=== PATIENT | male | born 1930 | race Caucasian/White ===

== ENCOUNTER 2019-12-08 10:45 | Emergency (ER) | payer OTHER ==
--- OUTSIDE RECORDS SUMMARY | 2019-12-08 10:48 | XMS REPORT ---
:1930 [facility] [place] [address] Care Team Providers Name Role Phone SADIE ALLEN MI Unavailable Unavailable Problems This patient has no known problems. Allergies, Adverse Reactions, Alerts This patient has no known allergies or adverse reactions. Medications This patient has no known medications. Results Test Description Test Time Test Comments Text Results Atomic Results Result Comments CT, ABDOMEN 2019-11-14 FINAL REPORT PATIENT ID: 16:25:[id number] of the abdomen and pelvis, without contrast Clinical History: c67.8 Technique: CT of the abdomen and pelvis is performed without intravenous contrast administration. This exam was performed according to our departmental dose optimization program which includes automated exposure control, adjustment of the mA and/or kV according to patient's size and/or use of iterative reconstructive technique. Comparison Film: None Discussion: There is mild degree of peripheral reticular nodular opacities at the lung bases. No liver lesion is identified on this noncontrast exam. There is no biliary ductal dilatation, gallbladder is unremarkable. The spleen, pancreas, adrenal glands are unremarkable. There is mild right and moderate to severe left hydronephrosis and hydroureter. There is left renal cortical atrophy, and calyceal diverticuli are suspected. No radiopaque stone. Status post cystoprostatectomy, with Miguel Angel pouch. The neobladder is distended. No evidence of bowel obstruction, or abnormal bowel wall thickening, although evaluation is suboptimal in the absence of IV and oral contrast. There is extensive colonic diverticulosis. No pericecal inflammatory change. Mild fecal impaction is noted in the rectum. Surgical clips are noted along the pelvic sidewalls. There is no adenopathy or ascites. There is advanced vascular calcification, and the aorta is ectatic. Osseous structures demonstrate degenerative changes. No suspicious bony lesion is identified. 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 Impression: Status post cystoprostatectomy. The neobladder is distended, and there is moderate to severe left, mild right hydronephrosis and hydroureter. There is left renal cortical atrophy, and possible left-sided calyceal diverticuli. No recurrent mass, or metastatic disease is identified on this noncontrast exam. Extensive colonic diverticulosis. Mild fecal impaction in the rectum. Signed: Colt Sorianoort Verified Date/Time: 11/14/2019 16:25:08 Reading Location: [facility] C013 Ortho Consult Reading Room , CHEST, 2 2019-11-14 Reason for FINAL REPORT PATIENT ID: VIEWS 15:09:00 Exam:->malignant neoplasm [id number] EXAM: PA and of overlapping sites of lateral views of the bladder chest. 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 Lungs: The lungs are well inflated and clear. Pleura: There is no pleural effusion or pneumothorax. Heart and mediastinum: The cardiac silhouette is mildly prominent but decrease in size when compared to prior exam. Unchanged calcifications of the aortic arch. Bones and soft tissues: Multilevel degenerative changes of the thoracic spine. IMPRESSION: No acute cardiopulmonary abnormalities. Signed: Emma Montalvo Verified Date/Time: 11/14/2019 15:09:44 Reading Location: [facility] Reading Room [address] [place], [place] [id number] , ANGIOGRAM, 2019-03-28 Angiogram with possible FINAL REPORT PATIENT ID: CEREBRAL 13:03:00 thrombectomyReason for [id number] DATE: 03/21/2019 exam:->CEREBROVASCULAR 1:28 PM SURGEON: Jada Dozier M.D. FIRST ThrombectomyLSOnel last COMPLAINT EVALUATION SUPERVISOR: sonny Edwards M.D. PREOPERATIVE DIAGNOSIS: Left INSURANCE AGENCY OWNER (P1) occlusion POST OPERATIVE DIAGNOSIS: Left INSURANCE AGENCY OWNER occlusion s/p successful recanalization OPERATION: 1) CEREBRAL ANGIOGRAM2) Mechanical thrombectomy of the left posterior cerebral artery thrombus ANESTHESIA: GETA ESTIMATED BLOOD LOSS: 15cc COMPLICATIONS: None INDICATIONS: Patient is an 88-year-old right-handed male with no significant past medical history presenting with right-sided weakness, discoordination and slurred speech. He was last seen normal at 10:30 PM last night on 03/20/2019 when he went to sleep. His found him the following this morning at the edge of the bed with neurologic deficits. CTA of the brain showed large vessel occlusion of the left P1 segment of the INSURANCE AGENCY OWNER. Neurosurgery was consulted for endovascular treatment. PROCEDURE: The risks, including but not limited to stroke, intracranial hemorrhage, vascular injury to the cervical or femoral vessels and groin hematoma were discussed with the patient's family. Informed consent was obtained. The patient was taken back to the endovascular suit and was intubated under general anesthesia. A time-out was performed. Both groins were prepped in the usual sterile fashion using Chloroprep, and sterilely draped. A single wall puncture of the right femoral artery was performed and a 8 Fr short sheath was inserted into the right common femoral artery and maintained on heparinized flush. A 6 Fr long sheath was advanced over a guidewire into the descending aorta, back-bled, and flushed in the usual fashion. Using coaxial technique, the left vertebral artery, basilar artery, left posterior cerebral artery were catheterized. Endovascular treatment was then performed on the occluded left P1 segment of the posterior cerebral artery (see details below) FINDINGS PRE-TREATMENT: LEFT SUBCLAVIAN ARTERY (ROADMAP - PA - CERVICAL) The origin of the left vertebral artery is patent without significant stenosis. LEFT VERTEBRAL ARTERY (DSA - PA, LATERAL - HEAD) The left vertebral artery is patent without significant stenotic lesion. The basilar artery shows no significant abnormality. There is symmetric caudal regression of the basilar artery. There is contrast reflux into the right vertebral artery with opacification of the right posterior inferior cerebellar artery. There is significant tortuosity in bilateral vertebral arteries.There is complete occlusion of the distal P1 segment of the left posterior cerebral artery. There is no distal filling in the left INSURANCE AGENCY OWNER territory. There is physiologic filling in the right INSURANCE AGENCY OWNER territory with opacification of all distal branchesNo aneurysms or vascular malformations are noted in the vertebrobasilar system. The venous phase shows patent bilateral transverse and sigmoid sinuses. ENDOVASCULAR INTERVENTION: Using coaxial technique, a Travefy distal access catheter was advanced under roadmap guidance and careful manipulation into the left vertebral artery. The ralali microcatheter, over a Synchro wire, was used to catheterize the left posterior cerebral artery. The catheter was advanced beyond the area of occlusion. Digital subtraction angiography using the appropriate rate and volume of contrast showed filling beyond the occluded segment of the left posterior cerebral artery. A 5 x 33 mm Embotrap stent retriever was then advanced to the area of occlusion through the microcatheter and deployed. The stent retriever was pulled back together with manual suction. Diagnostic angiogram through the distal access catheter demonstrated patency of the occluded P1 segment of the left INSURANCE AGENCY OWNER. The P1 and P2 segments of the left INSURANCE AGENCY OWNER showed good filling. However, there was no distal filling of the INSURANCE AGENCY OWNER territories beyond the P2 segment. A repeat angiogram 5 minutes later demonstrated complete reocclusion of the P1 segment of the left INSURANCE AGENCY OWNER. The Trevo stent retriever was then advanced into the area of stenosis over a Synchro wire through the microcatheter and deployed. The stent retriever was pulled back together with gentle manual suction. Diagnostic angiogram through the distal access catheter demonstrated complete patency of the entire left posterior cerebral artery with adequate filling of all the distal branches, TICI 3. Angiography through the left subclavian artery showed patency of the origin of the left vertebral artery without any stenosis. The left vertebral artery continued to be patent with good flow and no stenotic lesions. The catheters were removed. The 8 Turkmen sheath was removed. Hemostasis was achieved with an Angio-Seal closure device. The patient tolerated the procedure well and was transported from the angiography suite to the neurointensive care unit. SUPERVISION AND INTERPRETATION: 1. Pre-intervention angiographic study demonstrated complete occlusion of the left P1 segment of the posterior cerebral artery. 2. Successful recanalization using stentriever deployment and aspiration. TICI 3 3. No immediate technical or clinical complications. Signed: Emiliano Olvera MDReport Verified Date/Time: 03/28/2019 13:03:35 Reading Location: [facility] Y026 Neuro Angio Reading Room C METABOLIC PANEL 2019-03-24 05:49:00 Test Item Value Reference Range Comments SODIUM (BEAKER) (test 142 meq/L 136-145 ylik=072) POTASSIUM (BEAKER) (test 4.2 meq/L 3.5-5.1 yxka=526) CHLORIDE (BEAKER) (test 112 meq/L 98-107 ouwr=496) CO2 (BEAKER) (test mlvf=209) 24 meq/L 22-29 BLOOD UREA NITROGEN (BEAKER) 23 mg/dL 7-21 (test ybrm=411) CREATININE (BEAKER) (test 1.13 mg/dL 0.57-1.25 gubj=584) GLUCOSE RANDOM (BEAKER) 94 mg/dL 70-105 (test tmei=230) CALCIUM (BEAKER) (test 9.0 mg/dL 8.4-10.2 tgxg=450) EGFR (BEAKER) (test 61 mL/min/1.73 sq m ESTIMATED GFR IS NOT tzvm=4099) ACCURATE CREATININE CLEARANCE IN PREDICTING GLOMERULAR FILTRATION RATE. ESTIMATED GFR IS NOT APPLICABLE FOR DIALYSIS PATIENTS. CBC W/PLT COUNT & AUTO [id number] 05:25:00 Test Item Value Reference Range Comments WHITE BLOOD CELL COUNT (BEAKER) (test ygmn=381) 10.9 K/ L 3.5-10.5 RED BLOOD CELL COUNT (BEAKER) (test cklf=496) 4.15 M/ L 4.63-6.08 HEMOGLOBIN (BEAKER) (test aoev=664) 12.6 GM/DL 13.7-17.5 HEMATOCRIT (BEAKER) (test wgnl=305) 39.9 % 40.1-51.0 MEAN CORPUSCULAR VOLUME (BEAKER) (test lhsi=354) 96.1 fL 79.0-92.2 MEAN CORPUSCULAR HEMOGLOBIN (BEAKER) (test 30.4 pg 25.7-32.2 excb=850) MEAN CORPUSCULAR HEMOGLOBIN CONC (BEAKER) (test 31.6 GM/DL 32.3-36.5 peab=145) RED CELL DISTRIBUTION WIDTH (BEAKER) (test 13.3 % 11.6-14.4 basl=320) PLATELET COUNT (BEAKER) (test ilwx=016) 161 K/CU MM 150-450 MEAN PLATELET VOLUME (BEAKER) (test vrzk=612) 9.1 fL 9.4-12.4 NUCLEATED RED BLOOD CELLS (BEAKER) (test 0 /100 WBC 0-0 tbwz=357) NEUTROPHILS RELATIVE PERCENT (BEAKER) (test 73 % epmq=456) LYMPHOCYTES RELATIVE PERCENT (BEAKER) (test 14 % ptsv=444) MONOCYTES RELATIVE PERCENT (BEAKER) (test 9 % hkgo=944) EOSINOPHILS RELATIVE PERCENT (BEAKER) (test 4 % qzvu=331) BASOPHILS RELATIVE PERCENT (BEAKER) (test 1 % qcev=475) NEUTROPHILS ABSOLUTE COUNT (BEAKER) (test 7.95 K/ L 1.78-5.38 wvei=922) LYMPHOCYTES ABSOLUTE COUNT (BEAKER) (test 1.46 K/ L 1.32-3.57 kqmf=664) MONOCYTES ABSOLUTE COUNT (BEAKER) (test 0.93 K/ L 0.30-0.82 mtfy=631) EOSINOPHILS ABSOLUTE COUNT (BEAKER) (test 0.41 K/ L 0.04-0.54 ycre=523) BASOPHILS ABSOLUTE COUNT (BEAKER) (test 0.05 K/ L 0.01-0.08 gjon=517) IMMATURE GRANULOCYTES-RELATIVE PERCENT (BEAKER) 1 % 0-1 (test dysy=6284) BASIC METABOLIC [id number] 05:45:00 Test Item Value Reference Range Comments SODIUM (BEAKER) (test 142 meq/L 136-145 lguq=146) POTASSIUM (BEAKER) (test 4.4 meq/L 3.5-5.1 chic=158) CHLORIDE (BEAKER) (test 114 meq/L 98-107 icxp=075) CO2 (BEAKER) (test 24 meq/L 22-29 vlhk=328) BLOOD UREA NITROGEN 21 mg/dL 7-21 (BEAKER) (test bvge=205) CREATININE (BEAKER) (test 1.11 mg/dL 0.57-1.25 krik=054) GLUCOSE RANDOM (BEAKER) 96 mg/dL 70-105 (test tpvn=346) CALCIUM (BEAKER) (test 8.8 mg/dL 8.4-10.2 ytsa=223) EGFR (BEAKER) (test 63 mL/min/1.73 sq m ESTIMATED GFR IS NOT fsxg=4842) ACCURATE CREATININE CLEARANCE IN PREDICTING GLOMERULAR FILTRATION RATE. ESTIMATED GFR IS NOT APPLICABLE FOR DIALYSIS PATIENTS. CBC W/PLT COUNT & AUTO [id number] 05:34:00 Test Item Value Reference Range Comments WHITE BLOOD CELL COUNT (BEAKER) (test kbwl=812) 9.8 K/ L 3.5-10.5 RED BLOOD CELL COUNT (BEAKER) (test btki=246) 4.03 M/ L 4.63-6.08 HEMOGLOBIN (BEAKER) (test byob=077) 12.3 GM/DL 13.7-17.5 HEMATOCRIT (BEAKER) (test hkhb=253) 39.1 % 40.1-51.0 MEAN CORPUSCULAR VOLUME (BEAKER) (test bbjp=659) 97.0 fL 79.0-92.2 MEAN CORPUSCULAR HEMOGLOBIN (BEAKER) (test 30.5 pg 25.7-32.2 mrtw=007) MEAN CORPUSCULAR HEMOGLOBIN CONC (BEAKER) (test 31.5 GM/DL 32.3-36.5 rasm=813) RED CELL DISTRIBUTION WIDTH (BEAKER) (test 13.2 % 11.6-14.4 zqcp=815) PLATELET COUNT (BEAKER) (test ftxa=391) 160 K/CU MM 150-450 MEAN PLATELET VOLUME (BEAKER) (test hygj=287) 8.8 fL 9.4-12.4 NUCLEATED RED BLOOD CELLS (BEAKER) (test 0 /100 WBC 0-0 skpm=605) NEUTROPHILS RELATIVE PERCENT (BEAKER) (test 74 % qmuf=540) LYMPHOCYTES RELATIVE PERCENT (BEAKER) (test 14 % vvat=372) MONOCYTES RELATIVE PERCENT (BEAKER) (test 8 % noqa=024) EOSINOPHILS RELATIVE PERCENT (BEAKER) (test 4 % qbii=083) BASOPHILS RELATIVE PERCENT (BEAKER) (test 1 % lfyo=433) NEUTROPHILS ABSOLUTE COUNT (BEAKER) (test 7.19 K/ L 1.78-5.38 rjoj=474) LYMPHOCYTES ABSOLUTE COUNT (BEAKER) (test 1.33 K/ L 1.32-3.57 cyqe=212) MONOCYTES ABSOLUTE COUNT (BEAKER) (test 0.80 K/ L 0.30-0.82 dgru=042) EOSINOPHILS ABSOLUTE COUNT (BEAKER) (test 0.34 K/ L 0.04-0.54 gckh=378) BASOPHILS ABSOLUTE COUNT (BEAKER) (test 0.05 K/ L 0.01-0.08 dgdq=899) IMMATURE GRANULOCYTES-RELATIVE PERCENT (BEAKER) 0 % 0-1 (test tqle=0890) RAD, CHEST, 1 VIEW, NON [id number] 15:06:00Reason for exam:->persistent coughShould this be performed at the bedside?->YesFINAL REPORT EXAM: Frontal chest radiograph HISTORY PROVIDED: Persisting cough COMPARISON: 03/21/2019 IMPRESSION:There are left greater than right bibasilar opacities likely representing atelectasis, however pneumonitis should be excluded clinically. No pneumothorax or significant pleural fluid. The cardiac silhouette is magnified by technique. There is atherosclerotic calcification of the aorta. No acute osseous abnormality. Signed: Vishal Perez MDReport Verified Date/Time: 03/22/2019 15:06:31 Reading Location: [facility] Mammo Reading Room [id number] 10:44:00 Test Item Value Reference Range Comments RPR SCREEN (BEAKER) (test pmoa=997) Nonreactive Nonreactive [id number] 06:06:00 Test Item Value Reference Range Comments PHOSPHORUS (BEAKER) (test kpen=505) 3.2 mg/dL 2.3-4.7 [id number] 06:06:00 Test Item Value Reference Range Comments MAGNESIUM (BEAKER) (test jbcm=224) 2.4 mg/dL 1.6-2.6 BASIC METABOLIC [id number] 06:06:00 Test Item Value Reference Range Comments SODIUM (BEAKER) (test 143 meq/L 136-145 wkvl=660) POTASSIUM (BEAKER) (test 4.4 meq/L 3.5-5.1 vrzf=419) CHLORIDE (BEAKER) (test 114 meq/L 98-107 ggqe=261) CO2 (BEAKER) (test 22 meq/L 22-29 bjne=584) BLOOD UREA NITROGEN 24 mg/dL 7-21 (BEAKER) (test hswb=806) CREATININE (BEAKER) (test 1.26 mg/dL 0.57-1.25 zsdq=316) GLUCOSE RANDOM (BEAKER) 107 mg/dL 70-105 (test xthc=323) CALCIUM (BEAKER) (test 8.7 mg/dL 8.4-10.2 alne=919) EGFR (BEAKER) (test 54 mL/min/1.73 sq m ESTIMATED GFR IS NOT exwb=6140) ACCURATE CREATININE CLEARANCE IN PREDICTING GLOMERULAR FILTRATION RATE. ESTIMATED GFR IS NOT APPLICABLE FOR DIALYSIS PATIENTS. [id number] 05:49:00 Test Item Value Reference Range Comments PROTIME (BEAKER) (test eybu=284) 14.4 seconds 11.7-14.7 INR (BEAKER) (test fmgz=486) 1.2 <=5.9 PARTIAL THROMBOPLASTIN TIME (BEAKER) (test 67.9 seconds 22.5-36.0 emsa=185) RECOMMENDED COUMADIN/WARFARIN INR THERAPY RANGESSTANDARD DOSE: 2.0 - 3.0 Includes: PROPHYLAXIS forvenous thrombosis, systemic embolization; TREATMENT for venous thrombosis and/or pulmonary embolus.HIGH RISK: Target INR is 2.5-3.5 for patients with mechanical heart valves.CBC W/PLT COUNT & AUTO [id number] 05:33:00 Test Item Value Reference Range Comments WHITE BLOOD CELL COUNT (BEAKER) (test gwbq=483) 10.7 K/ L 3.5-10.5 RED BLOOD CELL COUNT (BEAKER) (test aqpj=993) 4.27 M/ L 4.63-6.08 HEMOGLOBIN (BEAKER) (test lwqn=980) 13.0 GM/DL 13.7-17.5 HEMATOCRIT (BEAKER) (test onws=364) 41.5 % 40.1-51.0 MEAN CORPUSCULAR VOLUME (BEAKER) (test eptn=876) 97.2 fL 79.0-92.2 MEAN CORPUSCULAR HEMOGLOBIN (BEAKER) (test 30.4 pg 25.7-32.2 vqxz=285) MEAN CORPUSCULAR HEMOGLOBIN CONC (BEAKER) (test 31.3 GM/DL 32.3-36.5 tfwv=445) RED CELL DISTRIBUTION WIDTH (BEAKER) (test 13.3 % 11.6-14.4 rrbi=972) PLATELET COUNT (BEAKER) (test szti=572) 159 K/CU MM 150-450 MEAN PLATELET VOLUME (BEAKER) (test vbin=116) 8.7 fL 9.4-12.4 NUCLEATED RED BLOOD CELLS (BEAKER) (test 0 /100 WBC 0-0 cllo=020) NEUTROPHILS RELATIVE PERCENT (BEAKER) (test 77 % fole=621) LYMPHOCYTES RELATIVE PERCENT (BEAKER) (test 11 % qxak=429) MONOCYTES RELATIVE PERCENT (BEAKER) (test 9 % dtrn=143) EOSINOPHILS RELATIVE PERCENT (BEAKER) (test 2 % dnvr=943) BASOPHILS RELATIVE PERCENT (BEAKER) (test 1 % ypwt=089) NEUTROPHILS ABSOLUTE COUNT (BEAKER) (test 8.20 K/ L 1.78-5.38 mmus=689) LYMPHOCYTES ABSOLUTE COUNT (BEAKER) (test 1.21 K/ L 1.32-3.57 snxs=960) MONOCYTES ABSOLUTE COUNT (BEAKER) (test 0.94 K/ L 0.30-0.82 bonb=177) EOSINOPHILS ABSOLUTE COUNT (BEAKER) (test 0.24 K/ L 0.04-0.54 dthe=220) BASOPHILS ABSOLUTE COUNT (BEAKER) (test 0.05 K/ L 0.01-0.08 bgan=011) IMMATURE GRANULOCYTES-RELATIVE PERCENT (BEAKER) 1 % 0-1 (test aqny=0629) CBC (HEMOGRAM ONLY)2019-03-22 05:28:00 Test Item Value Reference Range Comments WHITE BLOOD CELL COUNT (BEAKER) (test eiko=847) 10.7 K/ L 3.5-10.5 RED BLOOD CELL COUNT (BEAKER) (test xses=664) 4.27 M/ L 4.63-6.08 HEMOGLOBIN (BEAKER) (test wflm=987) 13.0 GM/DL 13.7-17.5 HEMATOCRIT (BEAKER) (test xxve=438) 41.5 % 40.1-51.0 MEAN CORPUSCULAR VOLUME (BEAKER) (test swcr=697) 97.2 fL 79.0-92.2 MEAN CORPUSCULAR HEMOGLOBIN (BEAKER) (test 30.4 pg 25.7-32.2 adgy=545) MEAN CORPUSCULAR HEMOGLOBIN CONC (BEAKER) (test 31.3 GM/DL 32.3-36.5 hjji=413) RED CELL DISTRIBUTION WIDTH (BEAKER) (test 13.3 % 11.6-14.4 synw=082) PLATELET COUNT (BEAKER) (test walg=157) 159 K/CU MM 150-450 MEAN PLATELET VOLUME (BEAKER) (test mhbv=245) 8.7 fL 9.4-12.4 NUCLEATED RED BLOOD CELLS (BEAKER) (test 0 /100 WBC 0-0 cxtk=722) MR, MRA, BRAIN, WITHOUT [id number] 04:46:00Reason for exam:-> Ischemic Stroke EvaluationFINAL REPORT MRA head and neck without contrast. CLINICAL HISTORY: Stroke evaluation. Left INSURANCE AGENCY OWNER stroke. COMPARISON: None. TECHNIQUE: Two- and three-dimensional occj-ua-uhwqad MRAimages of the intra- and extracranial carotid and vertebral arterial circulations were obtained, from which maximal intensity projection 3-D reconstructions were created. FINDINGS: MRA neck: There is no vessel occlusion or NASCET-quantifiable stenosis in the extracranial carotid or vertebral arterial circulations. Flow is antegrade in both vertebral arteries. MRA [place]: There is no vessel occlusion, flow-limiting stenosis, or aneurysm in the intracranial carotid or vertebrobasilar arterial circulations. A right posterior PCOM is present while the left is not seen. IMPRESSION: MRA neck: Unremarkable exam.MRA [place]: No proximal vessel occlusion or flow- limiting stenosis. Signed: Maddi Nick Verified Date/Time: 2018 04:46:02 Reading Location: [address] Body Reading Room MR, MRA , NECK, WITHOUT IV [id number] 04:46:00Reason for exam:->Ischemic Stroke EvaluationFINAL REPORT MRA head and neck without contrast. CLINICAL HISTORY: Stroke evaluation. Left INSURANCE AGENCY OWNER stroke. COMPARISON: None. TECHNIQUE: Two- and three-dimensional hyew-oc-ghdhzm MRAimages of the intra- and extracranial carotid and vertebral arterial circulations were obtained, from which maximal intensity projection 3-D reconstructions were created. FINDINGS: MRA neck: There is no vessel occlusion or NASCET- quantifiable stenosis in the extracranial carotid or vertebral arterial circulations. Flow is antegrade in both vertebral arteries. MRA [place] : There is no vessel occlusion, flow-limiting stenosis, or aneurysm in the intracranial carotid or vertebrobasilar arterial circulations. A right posterior PCOM is present while the left is not seen. IMPRESSION: MRA neck: Unremarkable exam.MRA [place]: No proximal vessel occlusion or flow- limiting stenosis. Signed: Maddi Nick Verified Date/Time: 2018 04:46:02 Reading Location: [address] Body Reading Room MR, BRAIN, WITHOUT [id number] 04:41:00Reason for exam:->Ischemic Stroke EvaluationFINAL REPORT Exam: MRI brain without contrast. Comparison: None. Clinical indication: Ischemic Stroke Evaluation. Left INSURANCE AGENCY OWNER stroke Technique: Multiplanar multi sequential MR imaging of the brain was performed without the administration of intravenous contrast. Findings:There isan area of restricted diffusion in the left inferomedial temporal lobe consistent with an acute infarct. There are foci of acute infarcts in the left thalamus and left occipital lobe and left cerebellum. There are mild white matter microvascular ischemic changes. There are small chronic bilateral cerebellar infarcts. There is generalized parenchymal atrophy. There is no intracranial mass, mass effect, extra-axial collection, hydrocephalus or herniation. There is no abnormality on susceptibility sequences to suggest hemorrhage or hemosiderin deposition. The skull base flow-voids are seen in keeping with their patency. There is mild paranasal sinus and coastal thickening with small air-fluid levels in the bilateral maxillary sinuses. There is trace opacification of the bilateral mastoid air cells. There are bilateral lens replacements. The sella and parasellar regions are unremarkable. The craniocervical junction is normal. Impression:Acute left temporal, occipital and thalamic infarcts. Tiny acute left cerebellar infarcts.Mild white matter microvascular ischemic changes. Chronic bilateralcerebellar infarcts.No acute intracranial hemorrhage or mass effect.Mild paranasal sinus mucosal thickening. Small bilateral maxillary sinus air-fluid levels which may represent acute sinusitis in the proper clinical setting. Dr Zavaleta pulmonology was notified at [id number] 03/22/19. Signed: Maddi Nick MDReport Verified Date/Time : 03/22/2019 04:41:26 Reading Location: [facility] B1 C013Y CT Body Reading Room TROPOJUSTIN [id number] 23:55:00 Test Item Value Reference Range Comments TROPONIN I (BEAKER) (test jivy=727) 0.02 ng/mL 0.00-0.03 Troponin I (TnI) levels must be interpreted in the context of the presenting symptoms and the clinical findings. Elevated TnI levels indicate myocardial damage, but are not specific for ischemic heart disease. Elevated TnI levels are seen in patients with other cardiac conditions (including myocarditis and congestive heart failure), and slight TnI elevations occur in patients with other conditions, including sepsis, renal failure, acidosis, acute neurological disease, and persistent tachyarrhythmia.[id number] 23:40:00 Test Item Value Reference Range Comments PROTIME (BEAKER) (test lzso=079) 14.4 seconds 11.7-14.7 INR (BEAKER) (test ylnd=851) 1.2 <=5.9 PARTIAL THROMBOPLASTIN TIME (BEAKER) (test 62.0 seconds 22.5-36.0 yqwm=166) RECOMMENDED COUMADIN/WARFARIN INR THERAPY RANGESSTANDARD DOSE: 2.0 - 3.0 Includes: PROPHYLAXIS forvenous thrombosis, systemic embolization; TREATMENT for venous thrombosis and/or pulmonary embolus.HIGH RISK: Target INR is 2.5-3.5 for patients with mechanical heart valves.HEMOGLOBIN [id number] 18:54:00 Test Item Value Reference Range Comments HEMOGLOBIN A1C (BEAKER) (test cwfn=008) 5.3 % 4.3-6.1 TROPONIN [id number] 18:18:00 Test Item Value Reference Range Comments TROPONIN I (BEAKER) (test wmnz=925) 0.01 ng/mL 0.00-0.03 Troponin I (TnI) levels must be interpreted in the context of the presenting symptoms and the clinical findings. Elevated TnI levels indicate myocardial damage, but are not specific for ischemic heart disease. Elevated TnI levels are seen in patients with other cardiac conditions (including myocarditis and congestive heart failure), and slight TnI elevations occur in patients with other conditions, including sepsis, renal failure, acidosis, acute neurological disease, and persistent tachyarrhythmia.CBC W/PLT COUNT & AUTO [id number] 17:35:00 Test Item Value Reference Range Comments WHITE BLOOD CELL COUNT (BEAKER) (test xwzz=119) 11.6 K/ L 3.5-10.5 RED BLOOD CELL COUNT (BEAKER) (test pdkl=245) 4.46 M/ L 4.63-6.08 HEMOGLOBIN (BEAKER) (test pjzi=038) 13.8 GM/DL 13.7-17.5 HEMATOCRIT (BEAKER) (test dpbq=455) 42.9 % 40.1-51.0 MEAN CORPUSCULAR VOLUME (BEAKER) (test qzsb=952) 96.2 fL 79.0-92.2 MEAN CORPUSCULAR HEMOGLOBIN (BEAKER) (test 30.9 pg 25.7-32.2 ddxy=111) MEAN CORPUSCULAR HEMOGLOBIN CONC (BEAKER) (test 32.2 GM/DL 32.3-36.5 efgt=769) RED CELL DISTRIBUTION WIDTH (BEAKER) (test 13.2 % 11.6-14.4 nzkv=737) PLATELET COUNT (BEAKER) (test twgf=980) 188 K/CU MM 150-450 MEAN PLATELET VOLUME (BEAKER) (test nzrc=890) 8.8 fL 9.4-12.4 NUCLEATED RED BLOOD CELLS (BEAKER) (test 0 /100 WBC 0-0 ddjb=952) NEUTROPHILS RELATIVE PERCENT (BEAKER) (test 85 % fvji=561) LYMPHOCYTES RELATIVE PERCENT (BEAKER) (test 8 % khul=134) MONOCYTES RELATIVE PERCENT (BEAKER) (test 5 % rnxp=165) EOSINOPHILS RELATIVE PERCENT (BEAKER) (test 1 % gfve=465) BASOPHILS RELATIVE PERCENT (BEAKER) (test 0 % bcgp=690) NEUTROPHILS ABSOLUTE COUNT (BEAKER) (test 9.85 K/ L 1.78-5.38 ejuv=537) LYMPHOCYTES ABSOLUTE COUNT (BEAKER) (test 0.95 K/ L 1.32-3.57 fzvk=553) MONOCYTES ABSOLUTE COUNT (BEAKER) (test 0.62 K/ L 0.30-0.82 icbh=575) EOSINOPHILS ABSOLUTE COUNT (BEAKER) (test 0.07 K/ L 0.04-0.54 pfng=819) BASOPHILS ABSOLUTE COUNT (BEAKER) (test 0.03 K/ L 0.01-0.08 xtqv=754) IMMATURE GRANULOCYTES-RELATIVE PERCENT (BEAKER) 0 % 0-1 (test aniz=5867) [id number] 17:03:00 Test Item Value Reference Range Comments PARTIAL THROMBOPLASTIN TIME (BEAKER) (test 35.3 seconds 22.5-36.0 tctg=188) Prior to initiating heparinPLATELET [id number] 16:51:00 Test Item Value Reference Range Comments PLATELET COUNT (BEAKER) (test liwo=782) 167 K/CU MM 150-450 [id number] 16:16:00 Test Item Value Reference Range Comments THYROID STIMULATING HORMONE (BEAKER) (test 1.11 uIU/mL 0.35-4.94 euwx=306) VITAMIN B12 AND [id number] 16:16:00 Test Item Value Reference Range Comments VITAMIN B12 (BEAKER) (test nbxh=518) 286 pg/mL 213-816 FOLATE (BEAKER) (test zhob=518) 14.4 ng/mL >=7.0 CT, BRAIN, WITHOUT [id number] 16:04:00FINAL REPORT CT, BRAIN, WITHOUT CONTRAST CLINICAL INDICATION: Stroke COMPARISON: March 21, 2019 TECHNIQUE: Noncontrast axial CT imaging of the brain and skull. DOSE REDUCTION: Dose modulation, iterative reconstruction, and/or weight-based adjustment of the mA/kV was utilized toreduce the radiation dose to as low as reasonably achievable. FINDINGS: Although contrast may not have been administered for the current exam, prior intravenous contrast is present and this is essentially a contrast enhanced exam, limiting evaluation for intracranial hemorrhage. Within these limitations, there is subtle loss of the akins-white junction within the left INSURANCE AG[employer] territory. Questionable parenchymal staining is present within the insula and posterior temporal lobe. No significant mass effect.Remainder the brain parenchyma is unchanged with background moderate chronic microvascular ischemic changes of the periventricular and subcortical white matter. No hydrocephalus. Orbits are within normal limits. No obstructive paranasal sinus disease. Trace fluid levels within the maxillary sinuses.IMPRESSION: Although contrast may not have been administered for the current exam, prior intravenouscontrast is present and this is essentially a contrast enhanced exam, limiting evaluation for intracranial hemorrhage. Within these limitations, there is subtle loss of the akins-white junction within the left INSURANCE AGENCY OWNER territory. Parenchymal staining is present within the insula and posterior temporal lobe.No significant mass effect. Signed: Hai Avery MDReport Verified Date/Time: 03/21/2019 16:04: 51 Reading Location: [facility] Reading Room TROPONIN [id number] 15:47:00 Test Item Value Reference Range Comments TROPONIN I (BEAKER) (test xmht=434) 0.02 ng/mL 0.00-0.03 Troponin I (TnI) levels must be interpreted in the context of the presenting symptoms and the clinical findings. Elevated TnI levels indicate myocardial damage, but are not specific for ischemic heart disease. Elevated TnI levels are seen in patients with other cardiac conditions (including myocarditis and congestive heart failure), and slight TnI elevations occur in patients with other conditions, including sepsis, renal failure, acidosis, acute neurological disease, and persistent tachyarrhythmia.LIPID [id number] 15:46:00 Test Item Value Reference Range Comments TRIGLYCERIDES (BEAKER) (test ofnz=719) 76 mg/dL CHOLESTEROL (BEAKER) (test uybj=709) 122 mg/dL HDL CHOLESTEROL (BEAKER) (test bmal=777) 36 mg/dL LDL CHOLESTEROL CALCULATED (BEAKER) (test 71 mg/dL piuj=212) Triglyceride Reference Range: Low Risk <150 Borderline 150- 199 High Risk 200-499 Very High Risk >=500Cholesterol Reference Range: Low Risk <200 Borderline 200-239 High Risk > 240HDL Cholesterol Reference Range: Low Risk >=60 High Risk <40LDL Cholesterol Reference Range: Optimal <100 Near Optimal 100-129 Borderline 130-159 High 160-189 Very High >=190HEPATIC FUNCTION [id number] 15:46:00 Test Item Value Reference Range Comments TOTAL PROTEIN (BEAKER) (test ceyv=755) 5.9 gm/dL 6.0-8.3 ALBUMIN (BEAKER) (test uykm=0582) 3.4 g/dL 3.5-5.0 BILIRUBIN TOTAL (BEAKER) (test cnvd=773) 0.5 mg/dL 0.2-1.2 BILIRUBIN DIRECT (BEAKER) (test naia=414) 0.3 mg/dL 0.1-0.5 ALKALINE PHOSPHATASE (BEAKER) (test xxcv=491) 42 U/L 40-150 AST (SGOT) (BEAKER) (test wuqb=148) 13 U/L 5-34 ALT (SGPT) (BEAKER) (test zjha=077) 13 U/L 6-55 RAD, CHEST, 1 VIEW, NON [id number] 11:21:00Reason for exam:->sobShould this be performed at the bedside?->YesFINAL REPORT CLINICAL HISTORY: sob TECHNIQUE: 1 view of the chest. COMPARISON: None IMPRESSION: There are coarsened lung markings without lobar consolidation or significant pleural fluid. The cardiomediastinal silhouette is magnified by technique. Signed: Jessica Woodson MDReportVerified Date/Time: 03/21/2019 11:21: 19 Reading Location: [facility] Reading Room TROPONIN [id number] 11:07:00 Test Item Value Reference Range Comments TROPONIN I (BEAKER) (test hsqa=942) < ng/mL 0.00-0.03 Troponin I (TnI) levels must be interpreted in the context of the presenting symptoms and the clinical findings. Elevated TnI levels indicate myocardial damage, but are not specific for ischemic heart disease. Elevated TnI levels are seen in patients with other cardiac conditions (including myocarditis and congestive heart failure), and slight TnI elevations occur in patients with other conditions, including sepsis, renal failure, acidosis, acute neurological disease, and persistent tachyarrhythmia.[id number] 10:59:00 Test Item Value Reference Range Comments MAGNESIUM (BEAKER) (test 2.5 mg/dL 1.6-2.6 Specimen moderately hemolyzed zqat=708) BASIC METABOLIC [id number] 10:59:00 Test Item Value Reference Range Comments SODIUM (BEAKER) (test 137 meq/L 136-145 jkae=451) POTASSIUM (BEAKER) (test 5.3 meq/L 3.5-5.1 Specimen moderately lprj=385) hemolyzed CHLORIDE (BEAKER) (test 106 meq/L 98-107 sdvp=910) CO2 (BEAKER) (test 26 meq/L 22-29 zekv=617) BLOOD UREA NITROGEN 30 mg/dL 7-21 (BEAKER) (test bayc=599) CREATININE (BEAKER) (test 1.33 mg/dL 0.57-1.25 Specimen moderately ncsg=156) hemolyzed GLUCOSE RANDOM (BEAKER) 108 mg/dL 70-105 (test prtv=501) CALCIUM (BEAKER) (test 8.6 mg/dL 8.4-10.2 amim=270) EGFR (BEAKER) (test 51 mL/min/1.73 sq m ESTIMATED GFR IS NOT vbmc=1796) ACCURATE CREATININE CLEARANCE IN PREDICTING GLOMERULAR FILTRATION RATE. ESTIMATED GFR IS NOT APPLICABLE FOR DIALYSIS PATIENTS. [id number] 10:47:00 Test Item Value Reference Range Comments PROTIME (BEAKER) (test ciel=134) 14.2 seconds 11.7-14.7 INR (BEAKER) (test hxfl=137) 1.2 <=5.9 PARTIAL THROMBOPLASTIN TIME (BEAKER) (test 32.3 seconds 22.5-36.0 mfny=455) RECOMMENDED COUMADIN/WARFARIN INR THERAPY RANGESSTANDARD DOSE: 2.0 - 3.0 Includes: PROPHYLAXIS forvenous thrombosis, systemic embolization; TREATMENT for venous thrombosis and/or pulmonary embolus.HIGH RISK: Target INR is 2.5-3.5 for patients with mechanical heart valves.CBC W/PLT COUNT & AUTO [id number] 10:41:00 Test Item Value Reference Range Comments WHITE BLOOD CELL COUNT (BEAKER) (test ootc=561) 11.3 K/ L 3.5-10.5 RED BLOOD CELL COUNT (BEAKER) (test nsmz=492) 4.28 M/ L 4.63-6.08 HEMOGLOBIN (BEAKER) (test eisb=087) 13.2 GM/DL 13.7-17.5 HEMATOCRIT (BEAKER) (test trfg=668) 42.1 % 40.1-51.0 MEAN CORPUSCULAR VOLUME (BEAKER) (test wrwn=457) 98.4 fL 79.0-92.2 MEAN CORPUSCULAR HEMOGLOBIN (BEAKER) (test 30.8 pg 25.7-32.2 sbek=223) MEAN CORPUSCULAR HEMOGLOBIN CONC (BEAKER) (test 31.4 GM/DL 32.3-36.5 jxlg=343) RED CELL DISTRIBUTION WIDTH (BEAKER) (test 13.2 % 11.6-14.4 mifa=587) PLATELET COUNT (BEAKER) (test mjbl=792) 164 K/CU MM 150-450 MEAN PLATELET VOLUME (BEAKER) (test awlh=395) 8.7 fL 9.4-12.4 NUCLEATED RED BLOOD CELLS (BEAKER) (test 0 /100 WBC 0-0 mkob=126) NEUTROPHILS RELATIVE PERCENT (BEAKER) (test 78 % tais=383) LYMPHOCYTES RELATIVE PERCENT (BEAKER) (test 11 % flmc=946) MONOCYTES RELATIVE PERCENT (BEAKER) (test 8 % jrlo=654) EOSINOPHILS RELATIVE PERCENT (BEAKER) (test 2 % ehdr=306) BASOPHILS RELATIVE PERCENT (BEAKER) (test 0 % tfqz=706) NEUTROPHILS ABSOLUTE COUNT (BEAKER) (test 8.83 K/ L 1.78-5.38 lgbm=560) LYMPHOCYTES ABSOLUTE COUNT (BEAKER) (test 1.28 K/ L 1.32-3.57 dwii=756) MONOCYTES ABSOLUTE COUNT (BEAKER) (test 0.93 K/ L 0.30-0.82 ctrh=090) EOSINOPHILS ABSOLUTE COUNT (BEAKER) (test 0.18 K/ L 0.04-0.54 iibw=458) BASOPHILS ABSOLUTE COUNT (BEAKER) (test 0.05 K/ L 0.01-0.08 dscr=475) IMMATURE GRANULOCYTES-RELATIVE PERCENT (BEAKER) 0 % 0-1 (test rgxu=2609) CT, CEREBRAL PERFUSION [id number] 10:31:00FINAL REPORT CT, CTANGIO BRAIN, CT, CAROTID, ANGIO, CT, CEREBRAL PERFUSION ANALYSIS INDICATION: StrokeSymptom onset less than 6 hours and NIHSS 6 or greater COMPARISON: Noncontrast head CT obtained approximately 30 minutes prior TECHNIQUE: Rapid acquisition spiral images were obtained between the aortic arch and the cranial vertex during intravenous contrast infusion to reconstruct axial images and angiographic 3D maximum intensity projections (MIP) .Three dimensional reformatted images were created at a dedicated workstation. Precontrast images of the brain were also obtained. Perfusion imaging technique: Arterial input function: ACAVenous outflow function: TorcularSite of normal perfusion: right anterior territory Stenosis evaluation reported in compliance with NASCET criteria. DOSE REDUCTION: Dose modulation, iterative reconstruction , and/or weight-based adjustment of the mA/kV was utilized to reduce the radiation dose to as low as reasonably achievable. FINDINGS:NONCONTRAST CT HEAD : Cerebral parenchyma: Subtle akins-white disruption in the mesial portion of the left posterior temporal and anterior occipital lobes. No parenchymal hemorrhage. Stable overall volume loss.Midline structures: Normally positioned.Cerebellum and brainstem: Normal.Ventricles: Normal volume.Extra- axial spaces: Unremarkable.Calvarium and skull base: Intact.Paranasal sinuses and mastoid air cells: Minimal fluid in the left maxillary chamber.Orbital contents: Included portions unremarkable. CTA BRAIN:Internal carotid arteries: Atherosclerotic disease in the cavernous segments without flow limitation. Robust distal opacification.Middle cerebral arteries: Patent to distal branches.Anterior cerebral arteries: Patent. Intact Acomm.Basilar system: Atherosclerotic disease creating focal narrowingin the mid basilar artery but without flow limitation. 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 Left posterior cerebral artery is patent.Venous opacification: Major dural sinuses unremarkable for bolus timing.Additional findings: None. CTA NECK:Common carotid arteries: The common carotid arteries are normal in size. Bifurcations: show trace atherosclerotic disease. No narrowing. Cervical internal carotid arteries: No flow limiting stenosis.Vertebral arteries: Codominant. No origin stenosis.Arch anatomy: Conventional. Atherosclerotic disease at the great vessel origins without origin stenosis. CT PERFUSION PARAMETRIC MAPS: Subtle decreased cerebral blood volume and flow in the left posterior cerebral artery territory. Matched defects are noted within the time to peak and mean transit time maps. Nonvascular findings:Osseous structures: No acute osseous abnormality. Moderate degenerative changes.Cervical soft tissues: No adenopathy. Patent aerodigestive tract.Lung apices: No apical consolidation or pneumothorax. IMPRESSION: Early subtle ischemic changes in theleft posterior cerebral artery territory without hemorrhagic conversion. 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 Perfusion indices reveal matched defects in the left posterior cerebral artery territory affecting the mesial left temporal and occipital lobes. No flow limitation is identified in the cervical vasculature. Signed: JR Ortiz Robert MDReport Verified Date/Time: 03/21/2019 10:31:36 Reading Location: [address] Neuro Reading Room [facility] [id number] 10:31:00Reason for exam:-> Symptom onset less than 6 hours and NIHSS [address], CTANGIO BRAIN, CT, CAROTID, ANGIO, CT, CEREBRAL PERFUSION ANALYSIS INDICATION: StrokeSymptom onset less than 6 hours and NIHSS 6 or greater COMPARISON: Noncontrast head CT obtained approximately 30 minutes prior TECHNIQUE: Rapid acquisition spiral images were obtained between the aortic arch and the cranial vertex during intravenous contrast infusion to reconstruct axial images and angiographic 3D maximum intensity projections (MIP) .Three dimensional reformatted images were created at a dedicated workstation. Precontrast images of the brain were also obtained. Perfusion imaging technique: Arterial input function: ACAVenous outflow function: TorcularSite of normal perfusion: right anterior territory Stenosis evaluation reported in compliance with NASCET criteria. DOSE REDUCTION: Dose modulation, iterative reconstruction , and/or weight-based adjustment of the mA/kV was utilized to reduce the radiation dose to as low as reasonably achievable. FINDINGS:NONCONTRAST CT HEAD : Cerebral parenchyma: Subtle akins-white disruption in the mesial portion of the left posterior temporal and anterior occipital lobes. No parenchymal hemorrhage. Stable overall volume loss.Midline structures: Normally positioned.Cerebellum and brainstem: Normal.Ventricles: Normal volume.Extra- axial spaces: Unremarkable.Calvarium and skull base: Intact.Paranasal sinuses and mastoid air cells: Minimal fluid in the left maxillary chamber.Orbital contents: Included portions unremarkable. CTA BRAIN:Internal carotid arteries: Atherosclerotic disease in the cavernous segments without flow limitation. Robust distal opacification.Middle cerebral arteries: Patent to distal branches.Anterior cerebral arteries: Patent. Intact Acomm.Basilar system: Atherosclerotic disease creating focal narrowingin the mid basilar artery but without flow limitation. 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 Left posterior cerebral artery is patent.Venous opacification: Major dural sinuses unremarkable for bolus timing.Additional findings: None. CTA NECK:Common carotid arteries: The common carotid arteries are normal in size. Bifurcations: show trace atherosclerotic disease. No narrowing. Cervical internal carotid arteries: No flow limiting stenosis.Vertebral arteries: Codominant. No origin stenosis.Arch anatomy: Conventional. Atherosclerotic disease at the great vessel origins without origin stenosis. CT PERFUSION PARAMETRIC MAPS: Subtle decreased cerebral blood volume and flow in the left posterior cerebral artery territory. Matched defects are noted within the time to peak and mean transit time maps. Nonvascular findings:Osseous structures: No acute osseous abnormality. Moderate degenerative changes.Cervical soft tissues: No adenopathy. Patent aerodigestive tract.Lung apices: No apical consolidation or pneumothorax. IMPRESSION: Early subtle ischemic changes in theleft posterior cerebral artery territory without hemorrhagic conversion. 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 Perfusion indices reveal matched defects in the left posterior cerebral artery territory affecting the mesial left temporal and occipital lobes. No flow limitation is identified in the cervical vasculature. Signed: JR Ortiz Robert MDReport Verified Date/Time: 03/21/2019 10:31:36 Reading Location: [address] Neuro Reading Room CT, CAROTID, [id number] 10:31:00Reason for exam:-> Symptom onset less than 6 hours and NIHSS [address], CTANGIO BRAIN, CT, CAROTID, ANGIO, CT, CEREBRAL PERFUSION ANALYSIS INDICATION: StrokeSymptom onset less than 6 hours and NIHSS 6 or greater COMPARISON: Noncontrast head CT obtained approximately 30 minutes prior TECHNIQUE: Rapid acquisition spiral images were obtained between the aortic arch and the cranial vertex during intravenous contrast infusion to reconstruct axial images and angiographic 3D maximum intensity projections (MIP) .Three dimensional reformatted images were created at a dedicated workstation. Precontrast images of the brain were also obtained. Perfusion imaging technique: Arterial input function: ACAVenous outflow function: TorcularSite of normal perfusion: right anterior territory Stenosis evaluation reported in compliance with NASCET criteria. DOSE REDUCTION: Dose modulation, iterative reconstruction , and/or weight-based adjustment of the mA/kV was utilized to reduce the radiation dose to as low as reasonably achievable. FINDINGS:NONCONTRAST CT HEAD : Cerebral parenchyma: Subtle akins-white disruption in the mesial portion of the left posterior temporal and anterior occipital lobes. No parenchymal hemorrhage. Stable overall volume loss.Midline structures: Normally positioned.Cerebellum and brainstem: Normal.Ventricles: Normal volume.Extra- axial spaces: Unremarkable.Calvarium and skull base: Intact.Paranasal sinuses and mastoid air cells: Minimal fluid in the left maxillary chamber.Orbital contents: Included portions unremarkable. CTA BRAIN:Internal carotid arteries: Atherosclerotic disease in the cavernous segments without flow limitation. Robust distal opacification.Middle cerebral arteries: Patent to distal branches.Anterior cerebral arteries: Patent. Intact Acomm.Basilar system: Atherosclerotic disease creating focal narrowingin the mid basilar artery but without flow limitation. 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 Left posterior cerebral artery is patent.Venous opacification: Major dural sinuses unremarkable for bolus timing.Additional findings: None. CTA NECK:Common carotid arteries: The common carotid arteries are normal in size. Bifurcations: show trace atherosclerotic disease. No narrowing. Cervical internal carotid arteries: No flow limiting stenosis.Vertebral arteries: Codominant. No origin stenosis.Arch anatomy: Conventional. Atherosclerotic disease at the great vessel origins without origin stenosis. CT PERFUSION PARAMETRIC MAPS: Subtle decreased cerebral blood volume and flow in the left posterior cerebral artery territory. Matched defects are noted within the time to peak and mean transit time maps. Nonvascular findings:Osseous structures: No acute osseous abnormality. Moderate degenerative changes.Cervical soft tissues: No adenopathy. Patent aerodigestive tract.Lung apices: No apical consolidation or pneumothorax. IMPRESSION: Early subtle ischemic changes in theleft posterior cerebral artery territory without hemorrhagic conversion. 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 Perfusion indices reveal matched defects in the left posterior cerebral artery territory affecting the mesial left temporal and occipital lobes. No flow limitation is identified in the cervical vasculature. Signed: JR Ortiz Robert MDReport Verified Date/Time: 03/21/2019 10:31:36 Reading Location: [address] Neuro Reading Room POCT-GLUCOSE [id number] 10:28:00 Test Item Value Reference Range Comments POC-GLUCOSE METER (BEAKER) 111 mg/dL 70-110 TESTED AT [address] (test jmkp=6075) [facility] [id number] CT, BRAIN/STROKE [id number] 09:39:00Reason for exam:->StrokeWhat is the patient's sedation requirement?->No SedationFINAL REPORT CT, BRAIN/STROKE PROTOCOL CLINICAL INDICATION: Cerebral ischemiaStroke COMPARISON: None TECHNIQUE: Noncontrast axial CT imaging of the brain and skull. DOSE REDUCTION: Dose modulation, iterative reconstruction, and /or weight-based adjustment of the mA/kV was utilized to reduce the radiation dose to as low as reasonably achievable. FINDINGS:Cerebral parenchyma: Moderate to severe global cerebral atrophy. Chronic white matter changes are present bilaterally with greatest disease burden in the periventricular right frontal lobe. Basal ganglia are intact.Midline structures: Normally positioned.Cerebellum and brainstem: Normal.Ventricles: Normal volume.Extra- axialspaces: Unremarkable. Calvarium and skull base: Intact.Paranasal sinuses and mastoid air cells: Visible chambers are clear.Orbital contents: Included portions unremarkable. Additional findings: None. IMPRESSION: Chronic involutional changes. No large territory ischemia or parenchymal hemorrhage. The findings were discussed with the stroke neurology housestaff at 0940 hours on March 21, 2019. Signed: JR Ortiz Robert MDReport Verified Date/Time: 03/21/2019 09:39:17 Reading Location: [facility] C013V Neuro Reading Room
--- NOTE | 2019-12-08 11:42 | RAD REPORT ---
EXAM DESCRIPTION: CT - CTHCSPWOC - 12/08/2019 11:28 am CLINICAL HISTORY: Trauma, head and neck injury. head injury, on eliquis COMPARISON: No comparisons TECHNIQUE: Axial 5 mm thick images of the head were obtained. Axial 2 mm thick images of the cervical spine were obtained with sagittal and coronal reconstruction images generated and reviewed. All CT scans are performed using dose optimization technique as appropriate and may include automated exposure control or mA/KV adjustment according to patient size. FINDINGS: CT HEAD WITHOUT CONTRAST: No acute hemorrhage, hydrocephalus or extra-axial collection is identified.Moderate generalized brain atrophy is present with moderate periventricular and deep white matter chronic microvascular ischemi c changes.No areas of brain edema or midline shift. The paranasal sinuses and mastoids are clear.The calvarium is intact. CT CERVICAL SPINE WITHOUT CONTRAST: No fracture or subluxation.Multilevel degenerative spondylosis of the cervical spine.No prevertebral soft tissues swelling is identified. IMPRESSION: No acute intracranial or cervical spine findings.
--- NOTE | 2019-12-08 11:52 | ER ---
Nurse's Notes [facility] Name: Hieu Spencer Age: 89 yrs Sex: Male : 1930 Arrival Date: 12/08/2019 Time: 10:48 Bed 19 Private MD: Diagnosis: Unspecified injury of head Presentation: 12/08 11:02 Presenting complaint: Child states: fell in shower this morning about 2 hours ago, iw hematoma to back of head, is currently on eliquis, denies LOC, denies headache or dizziness. Care prior to arrival: None. Mechanism of Injury: Fall from standing position. Trauma event details: Injury occurred in the [facility]. 11:02 Method Of Arrival: Ambulatory iw 11:02 Acuity: ANDREY 3 iw 11:05 Transition of care: patient was not received from another setting of care. Onset of iw symptoms was December 08, 2019. Risk Assessment: Do you want to hurt yourself or someone else? Patient reports no desire to harm self or others. Initial Sepsis Screen: Does the patient meet any 2 criteria? No. Patient's initial sepsis screen is negative. Does the patient have a suspected source of infection? No. Patient's initial sepsis screen is negative. Triage Assessment: 11:08 General: Appears in no apparent distress. comfortable, Behavior is calm, cooperative, bp appropriate for age. Pain: Complains of pain in left occipital area. EENT: No deficits noted. Neuro: No deficits noted. Cardiovascular: No deficits noted. Respiratory: No deficits noted. GI: No signs and/or symptoms were reported involving the gastrointestinal system. : No signs and/or symptoms were reported regarding the genitourinary system. Derm: No deficits noted. Musculoskeletal: No deficits noted. Trauma Activation: Not Applicable Physician: ED Physician; Name: ; Notified At: ; Arrived At: Physician: General Surgeon; Name: ; Notified At: ; Arrived At: Physician: Radiology; Name: ; Notified At: ; Arrived At: Physician: Respiratory; Name: ; Notified At: ; Arrived At: Physician: Lab; Name: ; Notified At: ; Arrived At: Historical: - Allergies: 11:04 No Known Allergies; iw - Home Meds: 11:04 Eliquis 2.5 mg oral tab 1 tab 2 times per day [Active]; metoprolol tartrate 25 mg Oral iw tab 1 tab 2 times per day [Active]; pravastatin 20 mg oral tab 1 tab once daily [Active]; Vitamin B-12 Oral daily [Active]; - PMHx: 11:04 Atrial Fib; CVA; Hypertension; iw - Immunization history: Last tetanus immunization:. - Coronavirus screen:: The patient has NOT traveled to [place], [place], or [place] in the past 14 days. Proceed with normal triage process as indicated. - Social history:: Smoking status: Patient/guardian denies using tobacco, but has a distant history of tobacco abuse. - Ebola Screening: : Patient negative for fever greater than or equal to 101.5 degrees Fahrenheit, and additional compatible Ebola Virus Disease symptoms Patient denies exposure to infectious person Patient denies travel to an Ebola-affected area in the 21 days before illness onset No symptoms or risks identified at this time. Screenin:34 Abuse screen: Denies threats or abuse. Denies injuries from another. Nutritional bp screening: No deficits noted. Tuberculosis screening: No symptoms or risk factors identified. Fall Risk None identified. Assessment: 11:08 General: SEE TRIAGE NOTE. bp 11:32 Reassessment: PT RETURNED FROM CT. bp 11:59 Reassessment: PT D/C HOME AMBULATORY WITH FAMILY, DX WITH UNSPECIFIED HEAD INJURY. bp Vital Signs: 11:05 BP 135 / 82; Pulse 57; Resp 16; Temp 97.4; Pulse Ox 98% on R/A; Weight 65.77 kg; Height iw 5 ft. 9 in. (175.26 cm); Pain 4/10; 11:58 BP 131 / 79; Pulse 61; Resp 16; Temp 97.5; Pulse Ox 98% ; bp 11:05 Body Mass Index 21.41 (65.77 kg, 175.26 cm) iw ED Course: 10:48 Patient arrived in ED. ag5 11:03 Triage completed. iw 11:05 Arm band placed on. iw 11:08 Rhys Pelletier PA is PHCP. jmm 11:08 Lois Leon MD is Attending Physician. jmm 11:26 Pavan Tom, KOBE is Primary Nurse. bp 11:31 CT Head C Spine In Process Unspecified. EDMS 11:34 Patient has correct armband on for positive identification. Bed in low position. Call bp light in reach. Side rails up X2. Adult w/ patient. 11:59 No provider procedures requiring assistance completed. Patient did not have IV access bp during this emergency room visit. Administered Medications: No medications were administered Outcome: 11:50 Discharge ordered by . nestor 11:59 Discharged to home ambulatory, with family. bp 11:59 Condition: stable 11:59 Discharge instructions given to patient, family, Instructed on discharge instructions, follow up and referral plans. Demonstrated understanding of instructions, follow-up care. 12:00 Patient left the ED. bp Signatures: Dispatcher [employer] EDMS Rhys Pelletier PA PA jmm Williams, Irene, RN RN Pavan Padilla RN RN [place] ag5
--- NOTE | 2019-12-08 11:52 | EDPHYS ---
Physician Documentation [facility] Name: Hieu Spencer Age: 89 yrs Sex: Male : 1930 Arrival Date: 12/08/2019 Time: 10:48 Bed 19 Private MD: ED Physician Lois Leon HPI: 12/08 11:12 This 89 yrs old Male presents to ER via Ambulatory with complaints of Fall jmm Injury, Head Injury-Adult. 11:12 Details of fall: The patient fell from an upright position. Onset: The symptoms/episode jmm began/occurred acutely, 2 hour(s) ago. Associated injuries: The patient sustained injury to the head, hematoma. The patient has not experienced similar symptoms in the past. This is an 89 year old male with a history of atrial fib, CVA, HTN that presents to the ED with swelling after slipping in the shower. Denies LOC, vomiting, family denies behavior change. . Historical: - Allergies: 11:04 No Known Allergies; iw - Home Meds: 11:04 Eliquis 2.5 mg oral tab 1 tab 2 times per day [Active]; metoprolol tartrate 25 mg Oral iw tab 1 tab 2 times per day [Active]; pravastatin 20 mg oral tab 1 tab once daily [Active]; Vitamin B-12 Oral daily [Active]; - PMHx: 11:04 Atrial Fib; CVA; Hypertension; iw - Immunization history: Last tetanus immunization:. - Coronavirus screen:: The patient has NOT traveled to [place], [place], or [place] in the past 14 days. Proceed with normal triage process as indicated. - Social history:: Smoking status: Patient/guardian denies using tobacco, but has a distant history of tobacco abuse. - Ebola Screening: : Patient negative for fever greater than or equal to 101.5 degrees Fahrenheit, and additional compatible Ebola Virus Disease symptoms Patient denies exposure to infectious person Patient denies travel to an Ebola-affected area in the 21 days before illness onset No symptoms or risks identified at this time. ROS: 11:12 Constitutional: Negative for fever, chills, and weight loss, Cardiovascular: Negative jmm for chest pain, palpitations, and edema, Respiratory: Negative for shortness of breath, cough, wheezing, and pleuritic chest pain. 11:12 Neuro: Positive for swelling. 11:12 All other systems are negative. Exam: 11:12 Constitutional: This is a well developed, well nourished patient who is awake, alert, jmm and in no acute distress. 11:12 ENT: Moist Mucus Membranes 11:12 Chest/axilla: Normal chest wall appearance and motion. Cardiovascular: Regular rate and rhythm. No edema appreciated Respiratory: Normal respirations, no respiratory distress appreciated Abdomen/GI: Non distended, soft Back: Normal ROM Skin: General appearance color normal MS/ Extremity: Moves all extremities, no obvious deformities appreciated, no edema noted to the lower extremities Neuro: Awake and alert, normal gait Psych: Behavior is normal, Mood is normal, Patient is cooperative and pleasant 11:12 Head/face: Noted is hematoma, that is moderate, of the left occipital area. 11:12 Neck: C-spine: appears grossly normal. Vital Signs: 11:05 BP 135 / 82; Pulse 57; Resp 16; Temp 97.4; Pulse Ox 98% on R/A; Weight 65.77 kg; Height iw 5 ft. 9 in. (175.26 cm); Pain 4/10; 11:58 BP 131 / 79; Pulse 61; Resp 16; Temp 97.5; Pulse Ox 98% ; bp 11:05 Body Mass Index 21.41 (65.77 kg, 175.26 cm) iw MDM: 11:09 Patient medically screened. [facility] 11:49 Data reviewed: vital signs, nurses notes. Counseling: I had a detailed discussion with nestor the patient and/or guardian regarding: the historical points, exam findings, and any diagnostic results supporting the discharge/admit diagnosis, radiology results, the need for outpatient follow up, to return to the emergency department if symptoms worsen or persist or if there are any questions or concerns that arise at home. ED course: CT negative. Patient given head injury return precautions. Patient/family understood and agrees with the plan of care. . 12/08 11:11 Order name: CT Head C Spine; Complete Time: 11:49 [facility] Administered Medications: No medications were administered Disposition: 18:18 Co-signature as Attending Physician, Lois Leon MD. ma2 Disposition: 12/08/19 11:50 Discharged to Home. Impression: Unspecified injury of head. - Condition is Stable. - Discharge Instructions: Head Injury, Adult. - Medication Reconciliation Form, Thank You Letter, Antibiotic Education, Prescription Opioid Use form. - Follow up: Private Physician; When: 2 - 3 days; Reason: Recheck today's complaints, Continuance of care, Re-evaluation by your physician. Signatures: Dispatcher [employer] EDMS Rhys Pelletier PA PA jmm Williams, Irene, RN RN iw Peltier, Brian, RN RN bp Alzahri, Mohammad, MD MD ma2 Corrections: (The following items were deleted from the chart) 12:00 11:50 12/08/2019 11:50 Discharged to Home. Impression: Unspecified injury of head. bp Condition is Stable. Forms are Medication Reconciliation Form, Thank You Letter, Antibiotic Education, Prescription Opioid Use. Follow up: Private Physician; When: 2 - 3 days; Reason: Recheck today's complaints, Continuance of care, Re-evaluation by your physician. nestor
[2019-12-08 12:22] VITALS: O2SAT 98
[2019-12-08 12:23] VITALS: BP 131/79; TEMP 97.5
== END 2019-12-08 12:00 | disposition home or self-care (01) ==
LOC: ER 10:45
DX: S09.90XA Unspecified injury of head, initial encounter (principal); W18.2XXA Fall in (into) shower or empty bathtub, initial encounter; Y93.E1 Activity, personal bathing and showering; Y92.012 Bathroom of single-family (private) house as the place of occurrence of the external cause; I10 Essential (primary) hypertension; I48.91 Unspecified atrial fibrillation; I63.9 Cerebral infarction, unspecified
CPT/HCPCS: 70450; 72125; 99283